=== PATIENT | female | born 2000 | race Caucasian/White ===

== ENCOUNTER 2022-05-02 10:08 | Emergency (ER) | payer BC ==
[2022-05-02 12:17] LABS: HEMOGLOBIN 14.7 gm/dl (12.3-15.3); RED BLOOD COUNT 4.81 M/UL (4.00-5.10); WHITE BLOOD COUNT 9.1 K/UL (4.5-11.0)
[2022-05-02 12:42] LABS: BUN/CREATININE RATIO 19 (0-10)
[2022-05-02] MEDS ORDERED: CEPHALEXIN500 M1 PO (15:24)
== END 2022-05-02 15:35 | disposition home or self-care (01) ==
LOC: ER1 10:08
PROVIDERS: Physician Assistant
DX: R56.9 Unspecified convulsions (principal); N39.0 Urinary tract infection, site not specified; Z20.822 Contact with and (suspected) exposure to COVID-19
CPT/HCPCS: 70450; 80053; 80307; 81001; 84703; 85025; 87086; 93005; 99285; G0480; U0002